=== PATIENT | male | born 1990 | race Caucasian/White ===

== ENCOUNTER 2020-06-09 08:36 | Emergency (ER) | payer OTHER, SELFPAY ==
[2020-06-09 08:43] VITALS: BP 110/70; PULSE 68; RESP 18; TEMP 36.6; O2SAT 97
--- NOTE | 2020-06-09 08:50 | ED.GENADULT ---
HPI - General Adult General Chief complaint: Skin/Abscess/Foreign Body Stated complaint: rash on legs/arms/eyes Time Seen by Provider: 06/09/20 08:51 Source: patient Mode of arrival: ambulatory Limitations: no limitations History of Present Illness HPI narrative: 29-year-old male patient presents to the [facility] with complaints of a rash x2 weeks. Patient states he first noted a rash on his left arm while was at work 1 day. Patient states that he was scratching it and noticed that it started to spread to bilateral lower extremities, the right arm and now it is on his face around his eye. Denies any vision changes. Denies any chest pain, shortness of breath or trouble swallowing. Patient states she he has tried his some [id number] hydrocortisone cream and antibiotic ointment to the area without any relief. Patient states he was outside mowing the grass a couple of weeks ago shortly before this started. Related Data Home Medications Medication Instructions Recorded Confirmed No Home Medications 06/09/20 06/09/20 Allergies Allergy/AdvReac Type Severity Reaction Status Date / Time No Known Allergies Allergy Verified 06/09/20 08:57 Review of Systems Review of Systems: Narrative: CONSTITUTIONAL: Denies fever, chills, or sweats. EYES: Denies visual changes, redness, or discharge. ENT: Denies rhinorrhea, congestion, sore throat, or otalgia. CARDIOVASCULAR: Denies chest pain, palpitations, or edema. RESPIRATORY: Denies cough or dyspnea. GASTROINTESTINAL: Denies abdominal pain, nausea, vomiting, or diarrhea. GENITOURINARY: Denies dysuria or hematuria. SKIN: Positive rash with itching to bilateral upper and lower extremities and face. MUSCULOSKELETAL: Denies back pain, joint pain, or myalgia. NEUROLOGIC: Denies headache, numbness, or weakness. PSYCHIATRIC: Denies anxiety or depression. PMFSH Comments At the time of my signature I agree with nursing past medical history, surgical, social, and family history. There is no relevant family history pertinent to the presenting complaint. Exam Narrative: Exam Narrative: GENERAL: Well-appearing, well-nourished, and in no acute distress. HEAD: Normocephalic, atraumatic. EYES: PERRLA and EOMI. ENT: Nares clear, no rhinorrhea or epistaxis. Mucous membranes moist. NECK: Supple. No lymphadenopathy CHEST: Clear to auscultation. No respiratory distress. HEART: Regular rate and rhythm. No murmur heard. Normal peripheral pulses. ABDOMEN: Soft, nontender, nondistended, normal active bowel sounds. EXTREMITIES: Normal range of motion. No edema. SKIN: Warm, dry, patient has small raised papules noted to the left arm that are in several clusters. There is a similar looking rash to the right arm as well as the bilateral lower extremities. There is also a cluster of small raised papules noted to the left side of the his abdomen. There is also some redness rash noted under the left eye and left cheek. There is no raised papules areas noted to this area. NEURO: No focal deficits. Alert and oriented x3. Course Vital Signs Vital signs: Vital Signs Temperature 36.6 C 06/09/20 08:43 Pulse Rate 68 06/09/20 08:43 Respiratory Rate 18 06/09/20 08:43 Blood Pressure 110/70 06/09/20 08:43 Pulse Oximetry 97 06/09/20 08:43 Temperature 36.6 C 06/09/20 08:43 Pulse Rate 68 06/09/20 08:43 Respiratory Rate 18 06/09/20 08:43 Blood Pressure 110/70 06/09/20 08:43 Pulse Oximetry 97 06/09/20 08:43 Vital signs reviewed. Medical Decision Making Differential Diagnosis Differential Diagnosis: Differential diagnosis: Contact dermatitis, poison julissa, poison sumac, psoriasis, eczema, allergic reaction, drug reaction, scabies, tinea syphilis, lung disease, viral exanthema, pityriasis, erythema multiforme. Discussed with patient most likely this is a poison julissa rash. Discussed with patient that since it is on his face at this time we will go ahead and put him on oral steroids a
== END 2020-06-09 09:00 | disposition home or self-care (01) ==
PROVIDERS: Emergency Provider Nurse Practitioner Family
DX: L23.7 Allergic contact dermatitis due to plants, except food (principal)
CPT/HCPCS: 99213; G0463